=== PATIENT | female | born 2000 | race Caucasian/White ===

== ENCOUNTER 2019-07-26 08:19 | Emergency (ER) | payer OTHER ==
[2019-07-26 08:31] VITALS: BP 118/77
--- NOTE | 2019-07-26 08:39 | UC ---
Throat Pain/Nasal Walt HPI - HPI Summary HPI Summary: Patient is a 18-year-old female presenting with sore throat and headache since yesterday and myalgias including neck stiffness 3 days. Patient notes sore throat that is worse when swallowing. Notes sore neck when she turns her head [id number]. Denies ear pain, cough, and nasal congestion. Denies shortness of breath and wheezing. Denies nausea, vomiting, diarrhea. Denies abdominal pain. denies decreased appetite or fluid intake. Notes fever of 99 yesterday and chills today. She also states that a few people that she hangs out with on campus had mono and strep throat recently. - History of Current Complaint Chief Complaint: UCGeneralIllness Stated Complaint: SORE THROAT HEADACHE STIFF NECK TIRED Time Seen by Provider: 07/26/19 08:38 Hx Obtained From: Patient Hx Last Menstrual Period: 2 weeks ago Onset/Duration: Gradual Onset, Lasting Days Severity: Mild Pain Intensity: 1 Pain Scale Used: 0-10 Numeric - Allergies/Home Medications Allergies/Adverse Reactions: Allergies Allergy/AdvReac Type Severity Reaction Status Date / Time No Known Allergies Allergy Verified 07/26/19 08:31 Home Medications: Home Medications Bupropion XL* [Wellbutrin XL *] 150 mg PO DAILY 07/26/19 [History Confirmed ] Ibuprofen TAB* [Advil TAB*] 400 mg PO ONCE PRN 07/26/19 [History Confirmed 07/26] PMH/Surg Hx/FS Hx/Imm Hx Previously Healthy: Yes - Surgical History Surgical History: None - Family History Known Family History: Positive: Unknown, Non-Contributory - Social History Alcohol Use: Rare Substance Use Type: None Smoking Status (MU): Never Smoked Tobacco Review of Systems All Other Systems Reviewed And Are Negative: Yes Constitutional: Positive: Fever, Chills, Fatigue Skin: Positive: Negative ENT: Positive: Sore Throat. Negative: Ear Ache, Nasal Discharge, Sinus Congestion, Sinus Pain/Tenderness Respiratory: Positive: Negative. Negative: Shortness Of Breath, Cough Cardiovascular: Positive: Negative. Negative: Palpitations, Chest Pain Musculoskeletal: Positive: Myalgia Neurological: Positive: Headache Physical Exam Triage Information Reviewed: Yes Appearance: Well-Appearing, No Pain Distress, Well-Nourished, Other: - Diaphoretic Vital Signs: Initial Vital Signs Temp 96.3 F 07/26/19 08:26 Pulse 108 07/26/19 08:26 Resp 16 07/26/19 08:26 BP 118/77 07/26/19 08:26 Pulse Ox 99 07/26/19 08:26 Lab Results 07/26/19 Range/Units 08:35 Group A Strep Rapid Negative (Negative) Vital Signs Reviewed: Yes Eyes: Positive: Conjunctiva Clear ENT: Positive: Hearing grossly normal, Pharyngeal erythema, TMs normal, Tonsillar swelling, Uvula midline, Other - Dry mucosa. Negative: Nasal congestion, Nasal drainage, TM bulging, TM dull, TM red, Tonsillar exudate, Trismus, Muffled voice, Hoarse voice, Sinus tenderness Neck exam: Normal Neck: Positive: Supple, Nontender, No Lymphadenopathy Respiratory Exam: Normal Respiratory: Positive: Lungs clear, Normal breath sounds, No respiratory distress. Negative: Crackles, Rhonchi, Stridor, Wheezing Cardiovascular Exam: Normal Cardiovascular: Positive: RRR, Tachycardia Musculoskeletal: Positive: Other: Neurological: Positive: Alert, Muscle Tone Normal, Other: - Negative Brudzinski and Kernig sign Psychological: Positive: Age Appropriate Behavior Skin Exam: Normal Throat Pain/Nasal Course/Dx - Course Course Of Treatment: Discussed negative strep test with patient. Explained most likely viral etiology of symptoms. Informed her possibility of mono but testing for mono would not change the course treatment. She declined mono testing. Patient overall looks well and is in no pain distress. VS are normal. Instructed patient to continue with symptomatic treatment and to follow up with PCP if symptoms persist. Patient voiced understanding and agreed to treatment plan. - Differential Dx/Diagnosis Provider Diagnosis: Pharyngitis Discharge ED - Sign-Out/Discharge Documenting (check all that apply): Patient Departure All imaging exams completed and their final reports reviewed: No Studies - Discharge Plan Condition: Stable Disposition: HOME Patient Education Materials: Pharyngitis (ED) Referrals: Ben Elias MD [Primary Care Provider] - If Needed Additional Instructions: As discussed, your rapid strep test was negative today. You may use over the counter throat lozenges and throat sprays as directed for symptomatic relief. You may continue to take ibuprofen as directed for pain relief. Get plenty of REST and FLUIDS. Follow up with your primary care doctor if your symptoms worsen or do not resolve within 7 days. Go to the emergency room if he experienced fever greater than 102, nausea, or vomiting. - Billing Disposition and Condition Condition: STABLE Disposition: Home
== END 2019-07-26 09:00 | disposition home or self-care (01) ==
LOC: UCEAST 08:19
DX: J02.9 Acute pharyngitis, unspecified (principal); R51 Headache; M79.10 Myalgia, unspecified site; M43.6 Torticollis; R53.83 Other fatigue
CPT/HCPCS: 87651; 99211; G0463